=== PATIENT | male | born 1965 | race Two or more races ===

== ENCOUNTER 2025-07-13 14:21 | Emergency (ER) | payer OTHER, MEDICAID ==
[~2025-07-13] VITALS: Ht 154.9 cm; Wt 67.7 kg
--- NOTE | 2025-07-13 15:14 | ED.PDOC ---
HPI (NEURO) HPI Comments 60-year-old male presents to the ER with a sister and with a prior MHx of being ASL in the chief complaint of a fall. Sister reports that the patient was bringing groceries and when he tripped and fell forward hitting his head and having a possible syncopal episode. This incident happened at 10:30 a.m. today and the patient does have and abrasion to the forehead. 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 Denies any other symptoms at this time. Chief Complaint: Head Injury Time Seen by MD: 14:46 Reviewed Notes: Nurses Notes, Medications, Allergies Information Source: Patient, Relative (Sibling) Mode of Arrival: Ambulatory Severity: Moderate Dizziness/Weakness Severity: Does not affect activitie Headache Severity: None Timing: Hours Duration: Since onset, Hours Prehospital treatment: None Onset: With light exertion Circumstances: Spontaneous Symptoms: None Before: Normal During: Awake, LOC After: Normal Mentation History of: Recent head trauma Associated Signs and Symptoms: None Past Medical History PAST MEDICAL HISTORY: Denies Past Medical History (Other): ASL Surgical History: Denies all surgeries Family History Family History: Reviewed,noncontributory to illness, Unknown Social History Smoker: Non-Smoker Alcohol: Denies ETOH Use Drugs: Denies Drug Use Lives In: Home Constitutional: denies: chills, diaphoresis, fatigue, fever, malaise, sweats, weakness, others EENTM: denies: blurred vision, double vision, ear bleeding, ear discharge, ear drainage, ear pain, ear ringing, eye pain, eye redness, hearing loss, mouth pain, mouth swelling, nasal discharge, nose bleeding, nose congestion, nose pain, photophobia, tearing, throat pain, throat swelling, voice changes, others Respiratory: denies: cough, hemoptysis, orthopnea, SOB at rest, shortness of breath, SOB with excertion, stridor, wheezing, others Cardiovascular: denies: chest pain, dizzy spells, diaphoresis, Dyspnea on e xertion, edema, irregular heart beat, left arm pain, lightheadedness, palpitations, PND, syncope, others Gastrointestinal: denies: abdomen distended, abdominal pain, blood streaked bowels, constipated, diarrhea, dysphagia, difficulty swallowing, hematemesis, melena, nausea, poor appetite, poor fluid intake, rectal bleeding, rectal pain, vomiting, others Genitourinary: denies: burning, dysuria, flank pain, frequency, hematuria, incontinence, penile discharge, penile sore, pain, testicle pain, testicle swelling, urgency, others Neurological: denies: dizziness, fainting, headache, left sided numbness, left sided weakness, numbness, paresthesia, pre-existing deficit, right sided numbness, right sided weakness, seizure, speech problems, tingling, tremors, weakness, others Musculoskeletal: reports: others (Mechanical fall, hitting forehead leaving an abrasion); denies: back pain, gout, joint pain, joint swelling, muscle pain, muscle stiffness, neck pain Integumetry: denies: bruises, change in color, change in hair/nails, dryness, laceration, lesions, lumps, rash, wounds, others Allergic/Immunocompromised: denies: Difficulty Healing, Frequent Infections, Hives, Itching, others Hematologic/Lymphatic: denies: anemia, blood clots, easy bleeding, easy bruising, swollen glands, others Endocrine: denies: excessive hunger, excessive sweating, excessive thirst, excessive urination, flushing, intolerance to cold, intolerance to heat, unexplained weight gain, unexplained weight loss, others Psychiatric: denies: anxiety, bipolar disorder, depression, hopeless, panic disorder, schizophrenia, sleepless, suicidal, others All Other Systems: Reviewed and Negative Physical Exam Exam Comments 0.5 cm abrasion to the forehead. No surrounding erythema. No surrounding contusion. No bony step-offs on palpation. No palpable depressed skull. General Appearance: No Apparent Distress, Normal HEENT: Normal ENT Inspection, Pharynx Normal, TMs Normal Neck: Full Range of Motion, Non-Tender, Normal, Normal Inspection Respiratory: Chest Non-Tender, Lungs Clear, No Accessory Muscle Use, No Respiratory Distress, Normal Breath Sounds Cardiovascular: No Edema, No JVD, No Murmur, No Gallop, Normal Peripheral Pulses, Regular Rate/Rhythm Breast Exam: Deferred Gastrointestinal: No Organomegaly, Non Tender, No Pulsatile Mass, Normal Bowel Sounds, Soft Genitalia: Deferred Pelvic: Deferred Rectal: Deferred Extremities: No calf tenderness, Normal capillary refill, Normal inspection, Normal range of motion, Non-tender, No pedal edema Musculoskeletal : Apperance: Normal Neurologic: Alert, 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 Was a procedure done?: No X-Ray, Labs, Meds, VS Vital Signs Date Time Temp Pulse Resp B/P (MAP) Pulse Ox O2 Delivery O2 Flow Rate FiO2 07/13/25 15:38 98 16 98 Room Air 07/13/25 15:38 98.7 98 16 136/64 (88) 98 98.7 07/13/25 14:24 97.5 72 16 140/62 98 97.5 X-Ray, Labs, Meds, VS Comment 60-year-old male presents to the ER with a sister and with a prior MHx of being ASL in the chief complaint of a fall. Patient arrives alert and oriented, ABC's intact, afebrile, vital signs stable, saturating well in room air No indication for head CT at this time. We will defer due to nexus criteria. On reevaluation, patient had symptomatic improvement. Patient is stable for discharge at this time. External notes reviewed. Test results and diagnostic imaging interpreted. All diagnostic findings, discharge care, education and instructions provided Follow-up with PCP in 2 to 3 days Patient verbalized understanding and agreed to treatment plan Vital signs stable, afebrile, no acute distress noted Patient ambulatory with strong steady gait Advised to return precautions for any new or worsening symptoms, return to ER immediately for re-evaluation Patient is aware that the purpose of this visit was for an acute medical emergency requiring emergent stabilization. Chronic conditions, including malignancies have not been ruled out. Patient is instructed to follow up with PCP as directed and discharge instructions for continued care and workup. If unable to arrange follow-up, patient is to return to the emergency department for reassessment. Patient (parent or legal guardian if applicable) was given verbal and written discharge instructions and acknowledges understanding. Additional MDM Review of External, Non-ED records: External records reviewed. Discussion with independent historian (EMS, family) history obtained from the patient/parents (if applicable) at bedside Chronic conditions affecting care: None Social determinants of health affecting care: None Consideration of admission (observation or admission): I considered escalation of care to admission for this patient, however given the reassuring workup, the patient is safe for outpatient management. Discussion with the Radiology: No Tests considered but not performed: Prescription medication considered but not given: 12 lead EKG interpretation: Time of 1ST Reevaluation: 15:15 Reevaluation 1ST: Unchanged Patient Education/Counseling: Diagnosis, Treatment, Prognosis Family Education/Counseling: Diagnosis, Treatment, Prognosis Departure 1 Departure Time of Disposition: 15:14 Impression: Primary Impression: Fall Qualified Codes: W19.XXXA - Unspecified fall, initial encounter Additional Impression: Minor head injury Qualified Codes: S09.90XA - Unspecified injury of head, initial encounter Disposition: HOME / SELF CARE / HOMELESS Condition: Stable Critical Care Note Critical Care Time?: No Stability Stability form required: No Heart Score Heart Score: Heart Score Response (Comments) Value History N/A 0 EKG N/A 0 Age N/A 0 Risk Factors N/A 0 Troponin N/A 0 Total 0 I personally scribed for CESAR ANGULO NP ([email or web address]) on 07/13/25 at 17:00. Electronically submitted by Venancio Doherty ([email or web address]). CESAR ANGULO NP Jul 13, 2025 15:14
[2025-07-13 15:38] VITALS: BP 136/64; PULSE 98; RESP 16; TEMP 98.7; O2SAT 98
== END 2025-07-13 15:40 | disposition home or self-care (01) ==
LOC: ER 14:21
DX: S00.81XA Abrasion of other part of head, initial encounter (principal); W01.10XA Fall on same level from slipping, tripping and stumbling with subsequent striking against unspecified object, initial encounter; Y93.89 Activity, other specified; Y92.89 Other specified places as the place of occurrence of the external cause; Y99.8 Other external cause status